=== PATIENT | male | born 1975 | race Hispanic/Latino ===

== ENCOUNTER 2019-04-12 11:35 | Inpatient (IN) | payer BC, OTHER ==
[2019-04-12 12:00] LABS: Absolute Lymphocytes (CBC) 5.1 K/uL (0.7-4.9); Basophils % 0.7 % (0-1.3); Hematocrit 37.1 % (39.6-49.0); Lymphocytes % 47.7 % (15.3-44.8); MPV 9.6 fL (7.6-11.3); RBC Red Blood Cell Count 4.18 M/uL (4.33-5.43)
[2019-04-12 12:04] LABS: Protime INR 0.97
--- NOTE | 2019-04-12 12:06 | RAD REPORT ---
EXAM DESCRIPTION: CT - Head Brain Wo Cont - 04/12/2019 11:57 am CLINICAL HISTORY: SYNCOPE Headache, drowsiness COMPARISON: <Comparisons> TECHNIQUE: All CT scans are performed using dose optimization technique as appropriate and may inclu de automated exposure control or mA/KV adjustment according to patient size. FINDINGS: No intracranial hemorrhage, hydrocephalus or extra-axial fluid collection.No areas of brai n edema or evidence of midline shift. The paranasal sinuses and mastoids are clear. The calvarium is intact. IMPRESSION: No acute intracranial abnormality.
[2019-04-12 12:23] LABS: BUN Blood Urea Nitrogen 17 mg/dL (7-18); Bicarbonate 24 mmol/L (21-32); Glucose Level 221 mg/dL (74-106); Magnesium 1.8 mg/dL (1.8-2.4); NT PRO-BNP 32 pg/mL (<125); Potassium 3.2 mmol/L (3.5-5.1); Sodium Level 137 mmol/L (136-145); Troponin (Emerg Dept Use Only) < 0.02 ng/mL (0.0-0.045)
--- NOTE | 2019-04-12 12:32 | RAD REPORT ---
EXAM DESCRIPTION: RAD - Chest Single View - 04/12/2019 12:17 pm CLINICAL HISTORY: syncope, post CPR and ROSC Chest pain. COMPARISON: No comparisons FINDINGS: Portable technique limits examination quality. The lungs are grossly clear. The heart is normal in size. No displaced fractures. IMPRESSION: No acute intrathoracic process suspected.
--- NOTE | 2019-04-12 13:02 | ER ---
Nurse's Notes [facility] Name: Ajit Chapa Age: 43 yrs Sex: Male : 1975 Arrival Date: 04/12/2019 Time: 11:39 Bed 3 Private MD: Diagnosis: Syncope and collapse;Status post cardiopulmonary resuscitation Presentation: 04/12 11:33 Presenting complaint: EMS states: pt was working out at the gym and just started, when sv pt had a witnessed syncopal episode, 1 round of CPR was done by nurse bystander and placed on the gym's AED; 1 shock was given and ROSC achieved. c/o dizziness and CP was stated. SBP 126 HR-90s. Transition of care: patient was not received from another setting of care. Onset of symptoms was April 12, 2019. Risk Assessment: Do you want to hurt yourself or someone else? Patient reports no desire to harm self or others. Care prior to arrival: CPR performed by bystander was defibrillated Medication(s) given: ASA, 81 mg, x 4, Nitroglycerin, 0.4 mg SL x 1, IV initiated. 18 GA, in the right antecubital area, Glucose check: 216. 11:33 Method Of Arrival: EMS: [facility] sv 11:33 Acuity: SHIRAZ 2 sv 11:50 Initial Sepsis Screen: Does the patient meet any 2 criteria? RR > 20 per min. No. sv Patient's initial sepsis screen is negative. Does the patient have a suspected source of infection? No. Patient's initial sepsis screen is negative. Triage Assessment: 11:35 General: Appears in no apparent distress. comfortable, well groomed, well developed, sv Behavior is calm, cooperative, appropriate for age. Pain: Denies pain. EENT: Nares bilaterally dried blood, abrasion noted to bridge of nose. Neuro: Level of Consciousness is awake, alert, obeys commands, Oriented to person, place, time, situation, Moves all extremities. Full function Speech is normal, Facial symmetry appears normal. Cardiovascular: Patient's skin is warm and dry. Pulses are 3+ in right radial artery and left radial artery Rhythm is sinus rhythm. Respiratory: Airway is patent Respiratory effort is even, unlabored, Respiratory pattern is regular, symmetrical. Derm: Skin is pink, warm \T\ dry. Musculoskeletal: Range of motion: intact in all extremities. Historical: - Allergies: 11:44 No Known Allergies; sv - Home Meds: 11:44 Lisinopril Oral [Active]; Metoprolol Tartrate Oral [Active]; sv - PMHx: 11:44 Diabetes - NIDDM; Hypertension; sv - Immunization history:: Adult Immunizations up to date. - Social history:: Smoking status: Patient/guardian denies using tobacco. - Family history:: not pertinent. - Ebola Screening: : No symptoms or risks identified at this time. - Hospitalizations: : No recent hospitalization is reported. Screenin:18 Abuse screen: Denies threats or abuse. Denies injuries from another. Nutritional sg screening: No deficits noted. Tuberculosis screening: No symptoms or risk factors identified. Never had TB. Fall Risk None identified. 15:08 VAN Screening: Arm Drift: Patient shows no arm weakness. Patient is VAN negative. sg Visual Disturbance: No visual disturbance noted. Aphasia: No aphasia noted. Neglect: No neglect noted. Assessment: 12:18 Reassessment: Patient appears in no apparent distress at this time. Patient and/or sg family updated on plan of care and expected duration. Pain level reassessed. Patient is alert, oriented x 3, equal unlabored respirations, skin warm/dry/pink. 13:15 Reassessment: Patient appears in no apparent distress at this time. Patient and/or sv family updated on plan of care and expected duration. Pain level reassessed. Patient is alert, oriented x 3, equal unlabored respirations, skin warm/dry/pink. Dr Jim at the bedside speaking with pt and family. Patient states feeling better. Patient states symptoms have improved. 13:42 Reassessment: Lunch tray given to pt. sv 14:00 Reassessment: Patient appears in no apparent distress at this time. Patient and/or sv family updated on plan of care and expected duration. Pain level reassessed. Patient is alert, oriented x 3, equal unlabored respirations, skin warm/dry/pink. Vital Signs: 11:44 Pulse 86; Resp 21; Temp 98; Pulse Ox 97% ; Weight 79.38 kg; Height 5 ft. 7 in. (170.18 sv cm); Pain 0/10; 12:15 BP 105 / 58; sg 12:26 BP 105 / 58; Pulse 88; Resp 15; Pulse Ox 100% ; sv 14:00 BP 108 / 66; Pulse 85; Resp 17; Pulse Ox 100% ; sv 15:06 BP 110 / 63; Pulse 90; Resp 17; Temp 98.3; Pulse Ox 100% on R/A; sg 11:44 Body Mass Index 27.41 (79.38 kg, 170.18 cm) sv NIH Stroke Scale Scores: 15:08 NIHSS Score: 0 sg ED Course: 11:33 Maintain EMS IV. Dressing intact. Good blood return noted. Site clean \T\ dry. Gauge \T\ sv site: 18G R AC. 11:39 Patient arrived in ED. sv 11:40 Marilee Durant, RN is Primary Nurse. sv 11:40 Kvng Pierson MD is Attending Physician. rn 11:43 Triage completed. sv 11:45 Arm band placed on. sv 11:50 Patient has correct armband on for positive identification. Placed in gown. Bed in low sv position. Call light in reach. Side rails up X2. engine monitor on. Pulse ox on. NIBP on. Door closed. Warm blanket given. Head of bed elevated. 11:50 Initial lab(s) drawn, by me, sent to lab. sg 11:59 CT Head Brain wo Cont In Process Unspecified. EDMS 12:16 X-ray completed. Portable x-ray completed in exam room. Patient tolerated procedure mh1 well. 12:18 XRAY Chest (1 view) In Process Unspecified. EDMS 12:59 Abiodun Jim MD is Hospitalizing Provider. rn 13:21 Admitting physician to see patient. . sg 14:12 Awaiting bed assignment. sv 15:11 Patient admitted, IV remains in place. intact, No redness/swelling at site. sg 15:19 No provider procedures requiring assistance completed. sv Administered Medications: 13:26 Drug: Potassium Chloride 40 mEq Route: PO; sv 13:45 Follow up: Response: No adverse reaction sv Outcome: 13:01 Decision to Hospitalize by Provider. rn 15:19 Patient left the ED. NIH Stroke Scale - NIH Stroke Score Date: 04/12/2019 Time: 15:08 Total Score = 0 1a. Level of Consciousness (LOC) - 0(Alert) 1b. Level of Consciousness (LOC) (Year \T\ Age) - 0(Both) 1c. LOC Commands (Open \T\ Closes Eyes/Tool Smith) - 0(Both) 2. Best Gaze (Lateral Gaze Paresis) - 0(Normal) 3. Visual Field Loss - 0(No visual loss) 4. Facial Palsy - 0(Normal) 5a. Left Arm: Motor (10-second hold) - 0(No drift) 5b. Right Arm: Motor (10-second hold) - 0(No drift) 6a. Left Leg: Motor (5-second hold - always test supine) - 0(No drift) 6b. Right Leg: Motor (5-second hold - always test supine) - 0(No drift) 7. Limb Ataxia (finger/nose \T\ heel/ahumada - test with eyes open) - 0(Absent) 8. Sensory Loss (pinprick arms/legs/face) - 0(Normal) 9. Best Language: Aphasia (description/naming/reading) - 0(No aphasia) 10. Dysarthria (speech clarity - read or repeat words) - 0(Normal) 11. Extinction and Inattention (visual/tactile/auditory/spatial/personal) - 0(No abnormality) Initials: sg Signatures: Dispatcher [employer] EDMarilee Muniz RN RN sv Gay, Steven, RN RN Lelo Robles [facility] Annel Cazares, NAVARRO BRICEÑO Kvng Pierson MD MD rn
--- NOTE | 2019-04-12 13:02 | EDPHYS ---
Physician Documentation [facility] Name: Ajit Chapa Age: 43 yrs Sex: Male : 1975 Arrival Date: 04/12/2019 Time: 11:39 Bed 3 Private MD: ED Physician Kvng Pierson HPI: 04/12 12:53 This 43 yrs old Unknown Male presents to ER via EMS with complaints of Syncope, CPR - rn post ROSC. 12:53 The patient has experienced syncope, became unresponsive, collapsed. Onset: The rn symptoms/episode began/occurred just prior to arrival. Duration: This was a single episode. Context: the episode(s) was witnessed, by a bystander, occurred gym, occurred while the patient was exercising, Just prior to the episode the patient experienced lightheadedness. Associated signs and symptoms: The patient has no apparent associated signs or symptoms, Pertinent negatives: abdominal pain, chest pain, confusion, headache, seizure, shortness of breath, vertigo, vomiting, weakness. Current symptoms: Currently, the patient is not experiencing any symptoms. The patient has not experienced similar symptoms in the past. Reports warming up on treadmill, for about 20 min, got lightheaded, got off treadmill, bystanders report syncopal episode and unresponsive, put AED on him, recommended shock, CPR administered, and patient regained consciousness after single shock. Now asymptomatic. No family or personal history of cardiac events. . Historical: - Allergies: 11:44 No Known Allergies; sv - Home Meds: 11:44 Lisinopril Oral [Active]; Metoprolol Tartrate Oral [Active]; sv - PMHx: 11:44 Diabetes - NIDDM; Hypertension; sv - Immunization history:: Adult Immunizations up to date. - Social history:: Smoking status: Patient/guardian denies using tobacco. - Family history:: not pertinent. - Ebola Screening: : No symptoms or risks identified at this time. - Hospitalizations: : No recent hospitalization is reported. ROS: 12:53 Constitutional: Negative for fever, chills, and weight loss, Eyes: Negative for injury, rn pain, redness, and discharge, Neck: Negative for injury, pain, and swelling, Cardiovascular: Negative for chest pain, palpitations, and edema, Respiratory: Negative for shortness of breath, cough, wheezing, and pleuritic chest pain, Abdomen/GI: Negative for abdominal pain, nausea, vomiting, diarrhea, and constipation, MS/Extremity: Negative for injury and deformity, Skin: Negative for injury, rash, and discoloration, Neuro: Negative for headache, weakness, numbness, tingling, and seizure. Exam: 12:53 Constitutional: This is a well developed, well nourished patient who is awake, alert, rn and in no acute distress. Head/Face: Normocephalic, atraumatic. Eyes: Pupils equal round and reactive to light, extra-ocular motions intact. Lids and lashes normal. Conjunctiva and sclera are non-icteric and not injected. Cornea within normal limits. Periorbital areas with no swelling, redness, or edema. ENT: MMM Neck: Trachea midline, no thyromegaly or masses palpated, and no cervical lymphadenopathy. Supple, full range of motion without nuchal rigidity, or vertebral point tenderness. No Meningismus. Cardiovascular: Regular rate and rhythm. No pulse deficits. Respiratory: No increased work of breathing, no retractions or nasal flaring. Abdomen/GI: soft, non-tender MS/ Extremity: Pulses equal, no cyanosis. Neurovascular intact. Full, normal range of motion. Equal circumference. Neuro: Awake and alert, GCS 15, oriented to person, place, time, and situation. Cranial nerves II-XII grossly intact. Motor strength 5/5 in all extremities. Sensory grossly intact. Cerebellar exam normal. Vital Signs: 11:44 Pulse 86; Resp 21; Temp 98; Pulse Ox 97% ; Weight 79.38 kg; Height 5 ft. 7 in. (170.18 sv cm); Pain 0/10; 12:15 BP 105 / 58; sg 12:26 BP 105 / 58; Pulse 88; Resp 15; Pulse Ox 100% ; sv 14:00 BP 108 / 66; Pulse 85; Resp 17; Pulse Ox 100% ; sv 15:06 BP 110 / 63; Pulse 90; Resp 17; Temp 98.3; Pulse Ox 100% on R/A; sg 11:44 Body Mass Index 27.41 (79.38 kg, 170.18 cm) sv NIH Stroke Scale Scores: 15:08 NIHSS Score: 0 sg MDM: 11:40 Patient medically screened. rn 12:53 Differential Diagnosis: cardiac arrhythmia, idiopathic syncope, vasovagal episode, international accountant event. Data reviewed: vital signs, nurses notes, lab test result(s), EKG, radiologic studies, CT scan, plain films, and as a result, I will admit patient. Counseling: I had a detailed discussion with the patient and/or guardian regarding: the historical points, exam findings, and any diagnostic results supporting the discharge/admit diagnosis, lab results, radiology results, the need for further work-up and treatment in the hospital. Response to treatment: the patient's condition has returned to base line, the patient is now symptom free, and as a result, I will admit patient. Admission orders: after a detailed discussion of the patient's condition and case, the admit orders are written by me. ED course: Admitted to Dr. Jim for cardiac w/u given sudden collapse, and need for CPR/defibrillation. . 04/12 11:41 Order name: Basic Metabolic Panel; Complete Time: 12:41 rn 04/12 11:41 Order name: CBC with Diff; Complete Time: 12:41 rn 04/12 11:41 Order name: Magnesium; Complete Time: 12:41 rn 04/12 11:41 Order name: NT PRO-BNP; Complete Time: 12:41 rn 04/12 11:41 Order name: PT-INR rn 04/12 11:41 Order name: Troponin (emerg Dept Use Only); Complete Time: 12:41 rn 04/12 11:41 Order name: XRAY Chest (1 view); Complete Time: 12:41 rn 04/12 11:41 Order name: EKG; Complete Time: 11:42 rn 04/12 11:41 Order name: Cardiac monitoring; Complete Time: 12:05 rn 04/12 11:41 Order name: EKG - Nurse/Tech; Complete Time: 12:05 rn 04/12 11:41 Order name: IV Saline Lock; Complete Time: 12:05 rn 04/12 11:41 Order name: CT Head Brain wo Cont; Complete Time: 12:41 rn 04/12 13:22 Order name: Diet Ada 1800 Krishna; Complete Time: 13:22 sv 04/12 11:41 Order name: Labs collected and sent; Complete Time: 12:05 rn 04/12 11:41 Order name: O2 Per Protocol; Complete Time: 12:05 rn 04/12 11:41 Order name: O2 Sat Monitoring; Complete Time: 12:05 rn Administered Medications: 13:26 Drug: Potassium Chloride 40 mEq Route: PO; sv 13:45 Follow up: Response: No adverse reaction sv Disposition: 04/12/19 13:01 Hospitalization ordered by Abiodun Jim for Inpatient Admission. Preliminary diagnosis are Syncope and collapse, Status post cardiopulmonary resuscitation . - Bed requested for Telemetry/MedSurg (Inpatient). - Status is Inpatient Admission. iw - Condition is Stable. - Problem is new. - Symptoms have improved. UTI on Admission? No NIH Stroke Scale - NIH Stroke Score Date: 04/12/2019 Time: 15:08 Total Score = 0 1a. Level of Consciousness (LOC) - 0(Alert) 1b. Level of Consciousness (LOC) (Year \T\ Age) - 0(Both) 1c. LOC Commands (Open \T\ Closes Eyes/Machinery Rigger) - 0(Both) 2. Best Gaze (Lateral Gaze Paresis) - 0(Normal) 3. Visual Field Loss - 0(No visual loss) 4. Facial Palsy - 0(Normal) 5a. Left Arm: Motor (10-second hold) - 0(No drift) 5b. Right Arm: Motor (10-second hold) - 0(No drift) 6a. Left Leg: Motor (5-second hold - always test supine) - 0(No drift) 6b. Right Leg: Motor (5-second hold - always test supine) - 0(No drift) 7. Limb Ataxia (finger/nose \T\ heel/ahumada - test with eyes open) - 0(Absent) 8. Sensory Loss (pinprick arms/legs/face) - 0(Normal) 9. Best Language: Aphasia (description/naming/reading) - 0(No aphasia) 10. Dysarthria (speech clarity - read or repeat words) - 0(Normal) 11. Extinction and Inattention (visual/tactile/auditory/spatial/personal) - 0(No abnormality) Initials: sg Signatures: Dispatcher [employer] EDMS Fidelina Kirk Stephanie, NAVARRO BRICEÑO sv Annel Cazares RN RN iw Nieto, Roman, MD MD blade bender furnace tender: (The following items were deleted from the chart) 14:47 13:01 Hospitalization Ordered by Abiodun Jim MD for Inpatient Admission. bd Preliminary diagnosis is Syncope and collapse; Status post cardiopulmonary resuscitation . Bed requested for Telemetry/MedSurg (Inpatient). Status is Inpatient Admission. Condition is Stable. Problem is new. Symptoms have improved. UTI on Admission? No. rn 15:19 14:47 04/12/2019 13:01 Hospitalization Ordered by Abiodun Jim MD for Inpatient iw Admission. Preliminary diagnosis is Syncope and collapse; Status post cardiopulmonary resuscitation . Bed requested for Telemetry/MedSurg (Inpatient). Status is Inpatient Admission. Condition is Stable. Problem is new. Symptoms have improved. UTI on Admission? No. bd
[2019-04-12] MEDS ORDERED: POTASSIUM CL SA 10 MEQ TAB PO ONE (13:26)
[2019-04-12] MEDS ORDERED: ONDANSETRON 4 MG/2 ML VIAL IV PRN (15:15)
[2019-04-12] MEDS ORDERED: ACETAMINOPHEN 500 MG TAB PO PRN (15:15)
[2019-04-12 16:03] VITALS: BMI 27.3
[2019-04-12] MEDS: NA CHLORIDE 0.9% 1,000 ML IV SCH (16:10)
[2019-04-12] MEDS: INSULIN -REGULAR HUMAN 50 UNIT/0.5 ML ML SQ SCH ×2 (16:30→21:00)
--- NOTE | 2019-04-12 16:45 | EKG ---
Test Date: 2019-04-12 Test Time: 11:38:45 Gospel Worker: YULISSA MEASUREMENT RESULTS: Intervals: Rate: 95 [place]: 150 QRSD: 92 QT: 356 QTc: 447 [place]: P: 48 [place]: 150 QRS: 43 T: 8 INTERPRETIVE STATEMENTS: Normal sinus rhythm Inferior infarct, age undetermined Cannot rule out Anterior infarct, age undetermined Abnormal ECG No previous ECG available for comparison Electronically Signed On 04-12-19 16:45:08 PEAT SHREDDER TENDER by Don Pugh
[2019-04-12] MEDS ORDERED: ENOXAPARIN 40 MG/0.4 ML SQ SCH (21:00)
[2019-04-12] MEDS ORDERED: ATORVASTATIN 10 MG TAB PO SCH (21:00)
[2019-04-13] MEDS: NA CHLORIDE 0.9% 1,000 ML IV SCH ×3 (00:03→15:15)
--- NOTE | 2019-04-13 01:29 | HP ---
Date of Admission: 04/12/2019 Chief Complaint: Cardiac arrest, status post resuscitation, syncope. Consultants: 1.Dr. Pugh, Cardiology. 2.Dr. Estrada, Neurology. History Of Present Illness: Patient is a 43-year-old male with past medical history of hypertension, hyperlipidemia, diabetes, comes in, who was in his usual state of health until the day of admission when the patient was at the gym on the treadmill, had a sudden onset of syncopal episode. He was jerome luated by nurses who were bystanders. CPR was initiated, 2 rounds. AED was brought in. Patient was in a shockable rhythm and was shocked. Patient then woke up and was brought to the emergency room. The patient's symptoms are constant, moderate, progressively worsening. The patient recalls feeling as if he was going to pass out and before he could say anything, the event occurred. According to t he brother who was next to him, he was able to catch the patient before he fell to the ground and bro ught him down. He was nonresponsive. Did notice some shaking that occurred. Also nosebleed, which may have been from the patient getting injured on the machine. The patient's workup in the hospital revealed a potassium of 3.2. Cardiac enzyme was negative. White blood cell count was normal. Hemog lobin was 13.1. EKG did not show any ST-elevation. The patient's chest x-ray was clear. Head CT sc an showed no acute intracranial abnormality. He was then referred for admission. Did not have any o ther alleviating factors to his symptoms. When seen in the ER, he was awake, alert, oriented x3, not in any acute distress at that point. Did report some pain in his chest from the CPR. Past Medical History: Hypertension, hyperlipidemia, diabetes mellitus type 2, non-insulin dependent. Surgical History: None. Allergies: NO KNOWN DRUG ALLERGIES. Medications: Lisinopril, metoprolol. Social History: Patient denies any tobacco use, illicit drug use. Does drink alcohol occasionally, had 2 beers yesterday, watching the game. Does not drink daily. 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 Family History: Patient denies any premature coronary artery disease in the family. No sudden in the family either. No recent hospitalizations. Review of Systems: Ten-point system reviewed, negative except as per HPI. Physical Examination: Vital Signs: Pulse 86, respirations 21, temperature 98, O2 97% on room air, blood pressure is 105/58 , BMI is 27. General: Awake, alert, oriented x3, in some mild distress due to pain in the chest from CPR. HEENT: Normocephalic, atraumatic. PERRLA. EOMI. Moist mucous membranes. Oropharynx is clear. No rmal dentition. Conjunctivae are anicteric. Neck: Supple. No JVD. Trachea midline. CV: S1, S2. Regular rate and rhythm. Peripheral pulses present. Respiratory: Moving air well bilaterally. No wheezing or stridor. No use of accessory muscles. Gastrointestinal: Abdomen is soft, nontender, nondistended. Positive bowel sounds. No guarding or rigidity. Extremities: No clubbing, cyanosis, or edema. No calf tenderness. Neuro: Cranial nerves 2 through 12 intact grossly. No focal neurological deficits. Speech is kerwin l. Strength is symmetric, bilateral upper and lower extremities. Sensation intact to light touch. Skin: No rashes. Normal skin turgor. Psych: Mood is okay. Affect is full. Insight and judgment are good. Laboratory Data: Sodium 137, potassium 3.2, chloride 104, CO2 24, BUN 17, creatinine 1.13, glucose 2 21, calcium 8.9, magnesium 1.8. Troponin less than 0.02. BNP 32. INR 0.97. WBC 10.6, H and H 13.1 and 37.1, platelets 271, neutrophils 43%. Imaging Studies: Head CT scan shows no acute intracranial abnormality. Chest x-ray shows no acute i ntrathoracic process identified, personally reviewed. Assessment And Plan: A 43-year-old male with: 1.Cardiac arrest, status post resuscitation and defibrillation. We will admit to Med-Surg, place as inpatient on cardiac telemetry. Patient will need cardiac workup. We will monitor for arrhythmias. Patient did have low potassium level; however, doubt that as the etiology. Patient does report abn ormal EKG on previous year's physicals. We will need to obtain previous records from Dr. Lopez's o ffice, make sure it is not [id number]. 2.Syncope, unclear etiology, may be cardiogenic versus neurogenic. Did have some episode of seizure -type activity according to the brother who witnessed the event. We will place on seizure precaution s and consult Neurology. May benefit from EEG study. However, there was no postictal state. 3.Essential hypertension, stable. 4.Mixed hyperlipidemia. We will check lipid panel and continue statin. 5.Diabetes mellitus type 2, non-insulin requiring. Patient states his hemoglobin A1c usually is nica und 7-7.5. We will check A1c. We will start on sliding scale insulin and monitor blood glucose ger uyn. 6.Overweight. BMI 27. 7.DVT prophylaxis with Lovenox. /MODL Voice ID: [id number]
[2019-04-13 04:30] LABS: Absolute Lymphocytes (CBC) 2.2 K/uL (0.7-4.9); Basophils % 0.6 % (0-1.3); Hematocrit 35.7 % (39.6-49.0); Lymphocytes % 27.3 % (15.3-44.8); MPV 9.2 fL (7.6-11.3); RBC Red Blood Cell Count 3.98 M/uL (4.33-5.43)
[2019-04-13 04:44] LABS: ALT/SGPT 105 U/L (12-78); AST/SGOT 57 U/L (15-37); Albumin 3.8 g/dL (3.4-5.0); Alkaline Phosphatase 62 U/L (45-117); BUN Blood Urea Nitrogen 14 mg/dL (7-18); Bicarbonate 29 mmol/L (21-32); Bilirubin Total 0.6 mg/dL (0.2-1.0); Glucose Level 167 mg/dL (74-106); HDL Cholesterol 43 mg/dL (40-60); LDL Cholesterol, Calculated 134 (<130); Magnesium 1.8 mg/dL (1.8-2.4); Phosphorus 2.8 mg/dL (2.5-4.9); Potassium 4.4 mmol/L (3.5-5.1); Protein, Total 6.8 g/dL (6.4-8.2); Sodium Level 141 mmol/L (136-145)
[2019-04-13] MEDS ORDERED: MAGNESIUM SULFATE 1 gm IVPB 1 GM/100 ML BAG IV ONE (05:03)
[2019-04-13] MEDS: INSULIN -REGULAR HUMAN 50 UNIT/0.5 ML ML SQ SCH ×2 (07:30→11:30)
[2019-04-13] MEDS ORDERED: LIDOCAINE 1% MPF 30 ML VIAL ONE (08:20)
[2019-04-13] MEDS ORDERED: HEPA 1000U/500MLS 2,000 UNIT/1,000 ML BAG IV ONE (08:20)
[2019-04-13] MEDS ORDERED: MIDAZOLAM HCL 2 MG/2 ML INJ ONE ×2 (08:52→09:30)
[2019-04-13] MEDS ORDERED: NA CHLORIDE 0.9% 0 ML ONE ×2 (08:52→08:53)
[2019-04-13] MEDS ORDERED: HEPARIN 5000 UNIT/ML 1 ML VIAL ONE (08:52)
[2019-04-13] MEDS ORDERED: NITROGLYCERIN 100 MCG/ML SYR (for cath lab use only) IV ONE (08:53)
[2019-04-13] MEDS ORDERED: ATROPINE SULF 1 MG/10 ML SYR IV ONE (08:53)
[2019-04-13] MEDS ORDERED: NICARDIPINE HCL 25 MG/10 ML IV ONE (08:53)
[2019-04-13] MEDS ORDERED: FENTANYL CITR 100 MCG/2 ML ONE (08:53)
[2019-04-13] MEDS ORDERED: NITROGLYCERIN/D5W 25 MG/250 ML BTL IV ONE (08:53)
[2019-04-13] MEDS ORDERED: lisinopriL 5 MG TAB PO SCH (09:00)
[2019-04-13] MEDS ORDERED: HOME MED 1 EA UNK (Lovastatin [Lovastatin] 1 TAB) PO SCH (09:00)
[2019-04-13] MEDS ORDERED: ENOXAPARIN 40 MG/0.4 ML SQ SCH (09:00)
[2019-04-13] MEDS ORDERED: ASPIRIN 81 MG CHEWABLE TABLET PO SCH (09:00)
[2019-04-13 09:04] LABS: Urine Appearance CLEAR; Urine Bilirubin NEGATIVE (NEG); Urine Blood NEGATIVE (NEG); Urine Color YELLOW; Urine Glucose NEGATIVE (NEG); Urine Protein NEGATIVE (NEG); Urine Specific Gravity 1.015 (1.005-1.030); Urine Urobilinogen 0.2 mg/dL (0.2-1.0)
[2019-04-13 09:08] LABS: Urine Microscopic Reflex NO UMIC
--- NOTE | 2019-04-13 10:31 | CON ---
Identification: 43-year-old man. Chief Complaint: Loss of consciousness. History Of Present Illness: The patient was at the gym, working out, talking to a friend and lost co nsciousness. He had no pulse. Nurses and other health professionals happened to be at the gym. The y did CPR. He did not wake up. The defibrillator was attached. There were no recordings from the d efibrillator that it shocked him once and then he woke up. Since he has been here in the hospital, valerie myers has had 1 set of normal cardiac enzymes. He has no previous history of cardiac arrest. He was ivan d once that his EKG looked abnormal, but no testing was done for it. He has underlying type 2 diabet es and hypertension. He does not use tobacco. Alcohol use minimal. No illegal drugs. He reports n o allergies. Physical Examination: General: He is alert, oriented, pleasant, not in distress. Lungs: Clear. Heart: Within normal limits. Abdomen: Soft. Extremities: Normal. Laboratory Data: EKG reveals old inferior and possible anterior infarct, typical for an apical infar ct of unknown age. He said he had something wrong with his EKG in the past of course. Impression: The patient had a witnessed cardiac arrest, fully quickly resuscitated. No neurological damage. We do not have any of the reports actually showing what the rhythm was, but we dare not ign ore it and I have recommended that he have a cardiac catheterization, possible stent, or other revasc ularization. If we do not see much coronary artery disease, he may need a primary defibrillator. Th e patient seems to understand the procedure, potential benefits, indications, risks, and agrees to proc eed. NORMA/MARSHALL Voice ID: [id number] Report ID: [id number]
--- NOTE | 2019-04-13 11:31 | OP ---
Surgeon: Don Pugh MD [employer]ach Tank Tender: Nadine Adams. Procedure: Left heart catheterization, coronary left ventricular angiography. Procedure Findings: The patient has modest stenosis in his right coronary artery. In his left coron ras artery, the left main is okay. Proximal LAD has a 50% stenosis involving the bifurcation of a ve ry large first diagonal. The lesion extends beyond the diagonal and then 3 cm beyond the bifurcation becomes a 90% stenosis. The very large first diagonal has a 90% stenosis more distal from the bifur cation. The circumflex has sequential 90% lesions before total occlusion. It gives rise to an obtus e marginal branch that fills by collaterals and seems to be an adequate vessel for bypass. His left ventricular ejection fraction is normal. Left ventricular end-diastolic pressure was 2. Our recomme ndation is that he undergo bypass surgery to the first diagonal, LAD, and obtuse marginal. Procedure In Detail: The patient was brought to the cardiac laborer cheesemaking in a fasting state, sedated wit h Versed and fentanyl. Prepared and draped in usual sterile fashion. Right radial approach was used . We entered the artery using a 21-gauge needle, cannulated the artery with a 0.02 inch guidewire, b ut a Terumo radial sheath gave a radial cocktail consisting of nicardipine, heparin and nitroglycerin . We guided a TIG catheter into the ascending aorta using fluoroscopy and a short radius J-tip Terum o Glidewire. We angiogramed right coronary, left coronary, left ventricle all with the TIG catheter. When the decision was made not to do interventions, the catheter was withdrawn over a J-wire. The sheath was flushed, removed, and the arteriotomy closed with a large TR band. Complications from the procedure none. Estimated Blood Loss: 5 cc. NORMA/MARSHALL Voice ID: [id number] Report ID: [id number]
[2019-04-13 12:05] VITALS: O2SAT 100
--- NOTE | 2019-04-13 14:28 | P.DS ---
Admission Date: 04/12/19 Discharge Date: 04/13/19 Disposition: [facility] Discharge Condition: SERIOUS Reason for Admission: Cardiac arrest Consultations: Cardiology-Dr. Pugh Procedures: cardiac catherization - Problems (1) Cardiac arrest Current Visit: Yes Status: Acute (2) CAD (coronary artery disease) Current Visit: Yes Status: Acute Qualifiers: Coronary Disease-Associated Artery/Lesion type: [place] artery Brief History of Present Illness: 43-year-old gentleman with a past medical history of hypertension and diabetes passed out on a treadmill. Bystander nurse performed CPR twice. AED reported shockable rhythm. Patient was shocked with ROSC. Patient became concious and was brought to the ED. Check troponin in the ED was negative. EKG did not show ST elevated. Chest x-ray unremarkable. CT was negative for acute changes. Potassium was mildly low. Patient was admitted for further management. Hospital Course: He was seen by cardiology, Dr. Pugh, cardiac catheterization was performed which reported multiple vessel disease. Dr. Pugh recommended cardiac bypass surgery. His vitals have remained stable since hospitalization. He is currently asymptomatic. Patient has been accepted for transfer to [facility] for CABG. He is placed on aspirin and Lipitor. He is deemed clinically stable for transfer. Vital Signs/Physical Exam: Temp Pulse Resp BP Pulse Ox 97.6 F 73 16 117/75 96 04/13/19 12:00 04/13/19 12:04 04/13/19 12:04 04/13/19 12:04 04/13/19 12:00 General: Alert, In no apparent distress, Oriented x3 HEENT: Atraumatic, Normocephalic Neck: Supple, JVD not distended Respiratory: Clear to auscultation bilaterally, Normal air movement Cardiovascular: No edema, Normal pulses, Regular rate/rhythm, Normal S1 S2 Capillary refill: <2 Seconds Gastrointestinal: Normal bowel sounds, Soft and benign, Non-distended, No tenderness Musculoskeletal: No swelling, No erythema Integumentary: No rashes Neurological: Normal speech, Normal strength at 5/5 x4 extr Laboratory Data at Discharge: WBC 8.0 K/uL (4.3-10.9) D 04/13/19 04:00 Hgb 12.5 g/dL (13.6-17.9) L 04/13/19 04:00 Hct 35.7 % (39.6-49.0) L 04/13/19 04:00 Plt Count 219 K/uL (152-406) 04/13/19 04:00 PT 11.5 SECONDS (9.5-12.5) 04/12/19 11:40 INR 0.97 04/12/19 11:40 Sodium 141 mmol/L (136-145) 04/13/19 04:00 Potassium 4.4 mmol/L (3.5-5.1) 04/13/19 04:00 BUN 14 mg/dL (7-18) 04/13/19 04:00 Creatinine 0.92 mg/dL (0.55-1.3) 04/13/19 04:00 Glucose 167 mg/dL (74-106) H 04/13/19 04:00 Phosphorus 2.8 mg/dL (2.5-4.9) 04/13/19 04:00 Magnesium 1.8 mg/dL (1.8-2.4) 04/13/19 04:00 Total Bilirubin 0.6 mg/dL (0.2-1.0) 04/13/19 04:00 AST 57 U/L (15-37) H 04/13/19 04:00 ALT 105 U/L (12-78) H 04/13/19 04:00 Alkaline Phosphatase 62 U/L (45-117) 04/13/19 04:00 Triglycerides 300 mg/dL (<150) H 04/13/19 04:00 Cholesterol 237 mg/dL (<200) H 04/13/19 04:00 HDL Cholesterol 43 mg/dL (40-60) 04/13/19 04:00 Cholesterol/HDL Ratio 5.51 04/13/19 04:00 Home Medications: Lisinopril 5 mg PO DAILY 04/12/19 Aspirin Chewable [Aspirin Chewable*] 81 mg PO DAILY tab.chew 04/13/19 Atorvastatin Calcium [Lipitor*] 10 mg PO BEDTIME tab 04/13/19 Insulin -Regular Human [Novolin -R*] See Protocol SQ ACHS ml 04/13/19 Ondansetron [Zofran*] 4 mg IV Q4H PRN vial 04/13/19 Pharmacy Consult 1 ea XX DAILYPRN PRN each 04/13/19 Diet: ADA Activity: Bedrest
[2019-04-13 16:32] VITALS: BP 112/68; TEMP 97.3
--- NOTE | 2019-04-13 22:14 | CON ---
Reason For Consultation: Consultation called because of syncope. History Of Present Illness: Mr. Chapa is a 43-year-old patient with history of hypertension, dyslip idemia, diabetes mellitus type 2, who had a syncopal episode at work. The patient was on a treadmill and he had finished walking on a treadmill when the symptoms began. He felt lightheaded and he pass ed out. His nearby friend assisted him down to the floor and the medical emergency services were sum moned. CPR was initiated by nurses who were bystanders and 2 rounds of that was performed. Also, an AED was used and the patient had shockable rhythm and the shock was initiated. The patient did pankaj isabela after apparently less than about 10 minutes and was slightly confused after and was brought into [facility]. His workup actually revealed significant multivessel coronary artery disease, a t least 3 vessels, requiring intervention. The patient was actually then set for transfer for bypass to coronary artery bypass grafting. His head CT scan did not reveal any abnormalities. This study was normal and his electrocardiogram did show an inferior infarct, age undetermined. Once the patient was revived, he did not have any focal deficits. During the event, there was just some shuttering noted of his shoulders, but no tonic-clonic activity. No tongue biting or loss of bladder control. Past Medical History: As indicated. Past Surgical History: None. Allergies: NO KNOWN DRUG ALLERGIES. Medications: Lisinopril, metoprolol. He was not taking aspirin or Plavix. Social History: Denies tobacco or IV drug use, but occasionally drinks about 2 or so beer while [employer] sports. Denies daily alcohol use. The patient works in a plant as a paper machine tender. Family History: No stroke, seizures, or myocardial infarction. Review of Systems: Denies any recent fevers, chills, nausea, vomiting, myalgias, arthralgias, headache, weight change, r donnell, psychiatric complaints, gastrointestinal or genitourinary issues. Physical Examination: Vital Signs: Blood pressure 112/68, pulse 75, respiratory rate 16, temperature 97.6, oxygen saturati on 99% on room air. Weight 174 pounds, height 5 feet 7 inches, BMI 25.3. General: Mr. Chapa is resting in bed. He is in no acute distress. Family members are in the room. HEENT: He is normocephalic, atraumatic. Sclerae anicteric. Oropharynx pink and moist. Neck: Supple. Chest: Clear. Heart: Regular. Extremities: Show no clubbing, cyanosis, or edema. Neurological: He is alert and oriented to person, place, time, and situation. He has no cranial ner ve deficits. He has no motor deficits in upper and lower extremities and has 5/5 strength proximally and distally. Sensory exam intact in upper and lower extremities. Coordination intact in upper and lower extremities. Reflexes 2+ at biceps, triceps, brachioradialis, patellae, and heels. Coordinat ion is intact for fine finger movements, rapid alternating movements, [id number] and [id number] . Gait has normal stance, stride, and arm swing. Assessment: Mr. Chapa is a 43-year-old patient with likely a myocardial infarction leading to synco pe with his cardiac arrest and he was revived with 2 rounds of CPR and AED being deployed. He is rec overed without focal neurological deficit. He does have a 3 vessel significant occlusion in the katherine nary arteries and is set to receive 3 vessel bypass surgery. It is unlikely that he had a seizure si multaneously. He does not have any evidence of a stroke. Plan: 1.The patient will follow up with livestock slaughterer and cardiothoracic surgeons as scheduled. 2.No neurological followup is required at this point. The patient will follow up with primary care physician as well. TIFFANY Voice ID: [id number] Report ID: [id number]
== END 2019-04-13 16:25 | disposition short-term general hospital (02) | DRG 287 ==
LOC: ER 11:35 → OBSVTOIN 13:34 → ERHOLD 13:34 → 4TH 15:09
PROVIDERS: ADMIT Family Medicine; ATTEND Family Medicine
PROC: 4A023N7 Measurement of Cardiac Sampling and Pressure, Left Heart, Percutaneous Approach (ICD-10-PCS; principal; 2019-04-13)
PROC: B205YZZ Plain Radiography of Left Heart using Other Contrast (ICD-10-PCS; 2019-04-13)
DX: I46.9 Cardiac arrest, cause unspecified (principal); I25.10 Atherosclerotic heart disease of native coronary artery without angina pectoris; E11.9 Type 2 diabetes mellitus without complications; I10 Essential (primary) hypertension
CPT/HCPCS: 36415; 70450; 71045; 80048; 80053; 80061; 81003; 82947; 83036; 83735; 83880; 84100; 84132; 84443; 84484; 85025; 85610; 93005; 93458; 94760; 99284; C1893; J0583; J1644; J1650; J2250; J3010; J3475; J7030; J7040